=== PATIENT | female | born 1990 | race Caucasian/White ===

== ENCOUNTER 2018-01-12 10:53 | Inpatient (IN) | payer OTHER ==
[~2018-01-12] VITALS: Ht 162.6 cm; Wt 184.0 kg
[2018-02-11] MEDS ORDERED: PRENATABS FA T1 EACH PO (07:40)
[2018-02-11] MEDS ORDERED: FE C TABLET1 EACH PO (07:40)
== END 2018-02-13 17:04 | disposition home or self-care (01) | DRG 775 ==
LOC: OB/GYN 02-05 15:00 → LDR 02-11 07:01 → OB/GYN 02-12 01:48
PROC: 10E0XZZ Delivery of Products of Conception, External Approach (ICD-10-PCS; principal; 2018-02-11)
PROC: 0UQGXZZ Repair Vagina, External Approach (ICD-10-PCS; 2018-02-11)
PROC: 10907ZC Drainage of Amniotic Fluid, Therapeutic from Products of Conception, Via Natural or Artificial Opening (ICD-10-PCS; 2018-02-11)
PROC: 3E033VJ Introduction of Other Hormone into Peripheral Vein, Percutaneous Approach (ICD-10-PCS; 2018-02-11)
PROC: 4A1HXCZ Monitoring of Products of Conception, Cardiac Rate, External Approach (ICD-10-PCS; 2018-02-11)
DX: O48.0 Post-term pregnancy (principal); O71.4 Obstetric high vaginal laceration alone; Z3A.40 40 weeks gestation of pregnancy; Z37.0 Single live birth

== ENCOUNTER 2018-02-15 12:43 | Emergency (ER) | payer OTHER ==
[~2018-02-15] VITALS: Ht 167.6 cm; Wt 77.1 kg
[~2018-02-15 12:43] MED LIST: FE C TABLET1 EACH PO; PRENATABS FA T1 EACH PO
== END 2018-02-15 14:47 | disposition home or self-care (01) ==
LOC: ER 12:43
DX: B34.9 Viral infection, unspecified (principal); F06.4 Anxiety disorder due to known physiological condition

== ENCOUNTER → 2020-03-21 | Outpatient (CLI) | payer OTHER | END | disposition home or self-care (01) | LOC: PRENATAL 09:59 | PROVIDERS: ATTEND Obstetrics & Gynecology Maternal & Fetal Medicine | DX: O35.0XX1 Maternal care for (suspected) central nervous system malformation in fetus, fetus 1 (principal); O35.3XX1 Maternal care for (suspected) damage to fetus from viral disease in mother, fetus 1; O98.512 Other viral diseases complicating pregnancy, second trimester; Z36.89 Encounter for other specified antenatal screening; Z3A.19 19 weeks gestation of pregnancy ==